=== PATIENT | female | born 1970 ===

== ENCOUNTER → 2021-04-16 | Outpatient (CLI) | payer OTHER ==
[~2021-04-16] MED LIST: FLUT15.812 NS; GADOTERATE 7.5 MMOL/15ML VIAL. IVP ONE
--- NOTE | 2021-04-16 13:48 | KCIC ---
STUDY: MRI of the right wrist with and without contrast INDICATION: Right wrist pain and swelling. COMPARISON: Right wrist radiographs 04/05/2021 TECHNIQUE: Multiplanar MR imaging of the right wrist performed without and with 16 cc Clariscan. FINDINGS: Study degradation on account of motion despite repeat imaging attempts. Bones/cartilage: No acute or subacute fracture. 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 A few tiny car pal cystic foci such as at the ulnar margin of the scaphoid. Normal scapholunate interval. Neutral ul gila variance. Ligaments: Intact scapholunate ligament complex. Unremarkable lunotriquetral ligament. The major extr insic wrist ligaments are intact. Musculotendinous: The flexor and extensor tendons are intact and normally positioned. No significant tendon sheath fluid. No localized muscular edema or atrophy. TFCC: The volar and dorsal radioulnar bands are intact. No large articular disc defect. Within normal limits styloid and foveal attachments. Miscellaneous: No significant wrist effusion or synovitis. No large ganglion cyst. Within normal limi ts signal and size of the median nerve. No discrete abnormality of the additional nerves coursing robby ng the wrist. IMPRESSION: 1. Study degradation on account of motion despite repeat imaging attempts. 2. No acute osseous or soft tissue abnormality. 3. 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 No findings to indicate an active inflammatory arthritis. No focal tendon tear or advanced tendinosis. The major ligaments are intact as is the TFCC. 4. In the setting of reported intermittent wrist swelling, no significant ganglion cyst is identifie d or wrist effusion/synovitis. Electronically signed by: MIKI CAMACHO MD (04/16/2021 1:46 PM) [id number]
== END ==
LOC: KCIC MRI 09:41
PROVIDERS: ATTEND Physician Assistant
DX: M18.11 Unilateral primary osteoarthritis of first carpometacarpal joint, right hand (principal); M79.89 Other specified soft tissue disorders
CPT/HCPCS: 73223; A9575